=== PATIENT | female | born 1985 | race Hispanic/Latino ===

== ENCOUNTER 2016-08-17 09:17 | Inpatient (IN) | payer OTHER ==
[~2016-08-17] VITALS: Ht 144.8 cm; Wt 65.8 kg
[2016-08-17] MEDS ORDERED: PRENATA3 PO (09:33)
[2016-08-21] VITALS (16 sets, daily range): BP systolic 95–138; BP diastolic 49–83
--- NOTE | 2016-08-21 00:10 | NUR ---
COMES TO UNIT FOR REPEAT IN AM WITH BTL. ACCOMPANIED BY SIGNIFICANT OTHER AND TWO CHILDREN. PT SPEAKS SWAZI BUT PARTNER SPEAKS [place]. MONITOR APPLIED. MONITOR SHOWS CONTRACTIONS BUT PT STATES SHE DOES NOT FEEL THEM. IV STARTED BY DL RUIZ RN IN RT FOREARM.
[2016-08-21 01:16] LABS: HEMATOCRIT 34.3 % (37.0-47.0); HEMOGLOBIN 11.9 g/dl (12.0-16.0); IMMATURE GRANULOCYTES 0.3 % (0.0-1.0); MEAN CELL VOLUME 89.6 fL CALC (80.0-100.0); MEAN CORPUSCULAR HGB 31.1 pG CALC (26.0-32.0); MEAN CORPUSCULAR HGB CONC 34.7 g/L CALC (32.0-36.0); NEUT# 4.38 thou/uL (2.00-7.15); RED BLOOD COUNT 3.83 mill/uL (4.20-5.60); RED CELL DISTRI WIDTH 14.2 % (11.5-15.5)
--- NOTE | 2016-08-21 01:55 | NUR ---
PT READY FOR SLEEP. IV INFUSING PER MED PUMP AT 125CC/HR. IV SITE WNL. HAS NO QUESTIONS OR COMPLAINTS. PARTNER AND CHILDREN LEAVE. CALL LIGHT WITHIN REACH AND BED IN LOW POSITION.
--- NOTE | 2016-08-21 02:35 | NUR ---
PT ASSISTED TO RESTROOM TO VOID. NO COMPLAINTS. IV INFUSING WITHOUT PROBLEMS.
--- NOTE | 2016-08-21 05:54 | NUR ---
ASSISTED TO RESTROOM TO VOID. GAIT STEADY AND EVEN. VS TAKEN AND STABLE. IV INFUSING AT 125CC/HR PER MED PUMP. MONITOR PLACED ON PT. PT READY FOR SURGERY.
--- NOTE | 2016-08-21 06:36 | NUR ---
PT READY FOR SURGERY. REPORT ON PT STATUS READY FOR ONCOMING SHIFT.
--- NOTE | 2016-08-21 06:50 | NUR ---
DR LÓPEZ IN TO SEE PT, PLAN FOR C SECTION, BILATERAL TUBAL LIGATION CONFIRMED WITH PT.
--- NOTE | 2016-08-21 06:51 | NUR ---
FH 149, LLQ.
--- NOTE | 2016-08-21 06:52 | NUR ---
PT TO OR FOR C SECTION VIA STRETCHER WITH OR NURSE.
--- NOTE | 2016-08-21 10:15 | NUR ---
PT TO UNIT VIA STRETCHER, AWAKE, ALERT, MOVING LEGS, FEET. SETTLED IN BED. KENZIE CARE DONE, MAGAÑA DRAINS PALE YELLOW URINE, IV INFUSES W/O PROBLEM.
--- NOTE | 2016-08-21 10:30 | NUR ---
SCDS IN PLACE, PT ENC TO DEEP BREATHE. AWARE SHE CAN HAVE PAIN MED IF NEEDED. RATES PAIN AT "2". CALL NEIL W/IN REACH.
--- NOTE | 2016-08-21 11:19 | NUR ---
RESTS QUIETLY HOLDING .
--- NOTE | 2016-08-21 12:40 | NUR ---
1230 PT VOMITED 100 ML CLEAR LIQUID, GIVEN ZOFRAN. PT ENC TO WAIT TO DRINK ANY FLUIDS. LG AMT BLOOD ON GREEN PAD, NO ACTIVE BLEEDING, KENZIE CARE DONE. 1240 PT SAT UP TO CARE FOR GOT NAUSEOUS. VOMITE 10 ML, CLEAR, ENC TO LIE DOWN AND REST, S/O IN ROOM HELPING TO CARE FOR .
--- NOTE | 2016-08-21 12:55 | NUR ---
RETS WITH EYES CLOSED, S/O AT SIDE.
--- NOTE | 2016-08-21 13:30 | NUR ---
FUNDUS FIRM, LOCHIA LIGHT PT RESTS.
--- NOTE | 2016-08-21 15:00 | NUR ---
PT HAS BEEN HOLDING , DENIES NAUSEA, SIPPING WATER.
--- NOTE | 2016-08-21 17:00 | NUR ---
RESTING WITH EYES CLOSED, ALLOWED TO REST.
--- NOTE | 2016-08-21 18:00 | NUR ---
PT HAS BEEN USING INCENTIVE SPIROMETER. KENZIE CARE DONE, DRESSING UNCHANG SINCE 1230 TODAY. PT ENC TO GET OOB, PT SITS ON SIDE OF BED, WITHOUT PROBLEM, AMBULATED TO BATHROOM, FELT SLIGHTLY DIZZY, BACK TO BED, SITTING ON SIDE OF BED, EATING SMALL AMT FULL LIQUIDS. MAGAÑA DRAINS COLIN URINE.
--- NOTE | 2016-08-21 18:40 | NUR ---
PT HAS BEEN SITTING ON SIDE OF BED FOR 40 MIN, NOT DIZZY, LIES DOWN IN BED.
--- NOTE | 2016-08-21 18:50 | NUR ---
REPORT RECEIVED FROM PARESH COKER RN. PT SITTING IN BED HOLDING BABY. PT HAS IV OF LR WITH PITOCIN INFUSING AT 125CC/HR PER MED PUMP. MAGAÑA CATHETER PATENT AND DRAINING COLIN COLORED URINE. INCISIONAL DRESSING HAS OLD DRAINAGE NOTED IN LOWER RT QUADRANT, MARKED BY DAY SHIFT. NO NEW DRAINAGE NOTED. SHEELA CHAVES INTERPRETS FOR THIS NURSE.
--- NOTE | 2016-08-21 18:50 | NUR ---
REPORT TO ONCOMING SHIFT.
--- NOTE | 2016-08-21 19:20 | NUR ---
PT REQUESTS PAIN MEDICATION. MEDICATED WITH TORADOL. SEE E-MAR FOR DETAILS.
--- NOTE | 2016-08-21 20:10 | NUR ---
PT RESTING WITH EYES CLOSED. RESP EVEN AND UNLABORED. NO DISTRESS NOTED. BED IN LOW POSITION AND CALL LIGHT WITHIN REACH.
--- NOTE | 2016-08-21 23:35 | NUR ---
VS STABLE. PT HAS NO QUESTIONS OR CONCERNS. ENCOURAGED TO TAKE SOME ORAL FLUIDS BUT REFUSES. NO NEW DRAINAGE NOTED ON ABDOMINAL DRESSING. PT VERY TIRED. WILL LET HER SLEEP.
--- NOTE | 2016-08-22 01:45 | NUR ---
REPORT RECEIVED FROM Michael TESFAYE RN. PT SITTING QUIETLY UP IN BED, AWAKE WITH LIGHT ON. PT DENIES PAIN. ADVISED TAKING OVER CARE. ASKED IF I COULD GET HER UP TO BATHROOM, STATED NO. ADVISED WOULD NEED TO GET UP TO BATHROOM IN NEXT 1 TO 2 HOURS. IV FLUIDS RUNNING AT 125/HR. BED IN LOW POSITION. CALL LIGHT IN REACH. WILL CONTINUE TO MONITOR.
--- NOTE | 2016-08-22 05:00 | NUR ---
PT SITTING IN BEDSIDE CHAIR IN NO APPARENT DISTRESS. CBC DRAWN FROM LEFT AC USING #23 BUTTERFLY NEEDLE X1 ATTEMPT. PT TOLERATED WELL. DENIES NEEDS.
[2016-08-22 05:15] VITALS: BP 98/53
[2016-08-22 05:28] LABS: HEMATOCRIT 24.2 % (37.0-47.0); HEMOGLOBIN 8.1 g/dl (12.0-16.0); IMMATURE GRANULOCYTES 1.4 % (0.0-1.0); MEAN CELL VOLUME 91.7 fL CALC (80.0-100.0); MEAN CORPUSCULAR HGB 30.7 pG CALC (26.0-32.0); MEAN CORPUSCULAR HGB CONC 33.5 g/L CALC (32.0-36.0); NEUT# 4.65 thou/uL (2.00-7.15); RED BLOOD COUNT 2.64 mill/uL (4.20-5.60); RED CELL DISTRI WIDTH 14.3 % (11.5-15.5)
--- NOTE | 2016-08-22 06:09 | NUR ---
0594 PT ASSISTED UP TO BATHROOM. KENZIE CARE DONE, FRESH PADS APPLIED. DID NOT URINATE. ASSISTED TO BED AND HANDED PER REQUEST TO HOLD. 7490 TORODOL GIVEN REQUESTED FOR C/O PAIN.
--- NOTE | 2016-08-22 06:35 | NUR ---
PT SITTING UP IN BED HOLDING/FEEDING INFANT. REPORT PREPARED FOR NEXT SHIFT.
[2016-08-22 07:30] VITALS: BP 110/71
--- NOTE | 2016-08-22 07:40 | NUR ---
ASSESSMENT IS COMPLETED: IV SITE IS FREE FROM REDNESS OR EDEMA.DRESSING HAS SOME SHADOWING NOTED. BONDING WELL WITH . ABLE TO AMBULATE TO THE BATHROOM. VOIDED WELL. CONTINUE TO PASS FLATUS. CONTINUE TO OSBERVE AND MONITOR.
--- NOTE | 2016-08-22 12:15 | NUR ---
PT IS RELAXING IN BED WITH NEXT TO HER NO DISTRESS NOTED. IV SITE IS NOW HEPLOCKED WITH ROUTINE CARE. CONTINUE TO ENCOURAGE PT TO DRINK AND EAT.
[2016-08-22 16:00] VITALS: BP 110/71
--- NOTE | 2016-08-22 16:10 | NUR ---
PT IS RESTING AT THIS TIME. PT DID AMBULATE IN THE [place] WITH IN OPEN CRIB. NO DISTRESS NOTED. CONTINUE TO OSBERVE AND MONITOR
--- NOTE | 2016-08-22 19:00 | NUR ---
REPORT RECEIVED FROM PREVIOUS SHIFT. PT SITTING UP IN BED HOLDING INFANT. DRESSING DRY AND INTACT. STATES PAIN 1-2/10. S/O AND CHILDREN AT BEDSIDE. DENIES OTHER NEEDS AT THIS TIME. BED IN LOW POSITION, CALL LIGHT IN REACH.
[2016-08-22 20:22] VITALS: BP 109/61
--- NOTE | 2016-08-22 20:22 | NUR ---
IN TO SEE PATIENT. VS/ASSESSMENT CHARTED. STATES PAIN IS 1/10 AT INCISION LINE. ENCOURAGED PATIENT TO INCREASE FLUIDS. BROUGHT WATER AND APPLE JUICE PER REQUEST. DRESSING IS CLEAN, DRY AND INTACT WITH SOME SHADOWING. PT HAS NOT SHOWERED TODAY. ADVISED AFTER SHE FINISHES FEEDING INFANT, SHE CAN SHOWER AND WET DRESSING TO TAKE OFF. PT ASKED IF NEW DRESSING WOULD BE APPLIED AND EXPLAINED THAT IT WOULD BE OPEN TO AIR. REITTERATED TO PATIENT ABOUT HANDWASHING, SAFE INFANT SLEEPING, DIAPERING, USING BULB SUCTION AND WHERE TO KEEP DIAPERS AFTER CHANGING. VOICED UNDERSTANDING.
--- NOTE | 2016-08-23 02:11 | NUR ---
IN TO CHECK ON PATIENT. LAYING IN BED, EYES CLOSED. RESP EVEN/UNLABORED. GENTLY WOKE TO ADVISE/REITTERATE NEEDS TO BE IN OPEN CRIB WHEN PT SLEEPING. MOVED INFANT TO OPEN CRIB. ADVISED MOM WOULD TAKE TO NURSERY TO REPEAT HEARING, FEED , PKU.
[2016-08-23 06:04] VITALS: BP 107/64
--- NOTE | 2016-08-23 06:14 | NUR ---
IN ROOM WITH PT, STATES SHE HAD TO USE BATHROOM. ADVISED SHE MAY GET UP. PT NEEDS ENCOURAGEMENT TO GET UP ON OWN, FEED , CHANGE INFANT ON HER OWN.
--- NOTE | 2016-08-23 06:50 | NUR ---
REPORT GIVEN TO NEXT SHIFT. PT JUST UP TO BATHROOM, NOW BACK TO BED.
[2016-08-23 07:50] VITALS: BP 97/61
--- NOTE | 2016-08-23 07:50 | NUR ---
PT HAS BEEN RESTING IN BED WITH NO DISTRESS NOTED/ ASSESSMENT IS COMPLETED: IN TO VISIT WITH PT.
--- NOTE | 2016-08-23 10:39 | NUR ---
PT RELAXING ON THE SIDE OF THE BED, DR. ANDERSON IN TO VISIT WITH PT FOR DISCHARGE
--- NOTE | 2016-08-23 12:15 | NUR ---
pt has been in the room. getting lunch and finishing up paperwork for discharge. continue to osberve and monitor.
--- NOTE | 2016-08-23 12:35 | NUR ---
Pain level of 4 on scale of 1 to 10. Motrin 600mg by mouth given.
--- NOTE | 2016-08-23 13:41 | NUR ---
all discharge instructions interpreted by flakita arriola. pt verbalized understanding.
== END 2016-08-23 13:40 | disposition home or self-care (01) | DRG 766 ==
LOC: OB 08-21 00:10 → EDUNIT# 08-21 12:00 → OB 08-21 12:00
PROVIDERS: ADMIT Obstetrics & Gynecology; ATTEND Obstetrics & Gynecology
PROC: 10D00Z1 Extraction of Products of Conception, Low, Open Approach (ICD-10-PCS; principal; 2016-08-21)
PROC: 0UB70ZZ Excision of Bilateral Fallopian Tubes, Open Approach (ICD-10-PCS; 2016-08-21)
PROC: 0UN90ZZ Release Uterus, Open Approach (ICD-10-PCS; 2016-08-21)
PROC: 0DNW0ZZ Release Peritoneum, Open Approach (ICD-10-PCS; 2016-08-21)
DX: O34.211 Maternal care for low transverse scar from previous cesarean delivery (principal); N73.6 Female pelvic peritoneal adhesions (postinfective); N85.8 Other specified noninflammatory disorders of uterus; O99.89 Other specified diseases and conditions complicating pregnancy, childbirth and the puerperium; Z3A.39 39 weeks gestation of pregnancy; Z37.0 Single live birth

== ENCOUNTER 2016-12-11 13:53 | Emergency (ER) | payer SELFPAY ==
[~2016-12-11] VITALS: Ht 144.8 cm; Wt 56.0 kg
[~2016-12-11 13:53] MED LIST: PRENATA3 PO
[2016-12-11 15:11] LABS: URINE BILIRUBIN - DIPSTICK NEGATIVE (NEGATIVE); URINE BLOOD DIPSTICK TRACE-LYSED (NEGATIVE); URINE COLOR YELLOW; URINE GLUCOSE - DIPSTICK NEGATIVE (NEGATIVE); URINE KETONE NEGATIVE (NEGATIVE); URINE NITRITE - DIPSTICK NEGATIVE (Negative); URINE PROTEIN - DIPSTICK NEGATIVE (NEG-TRACE); URINE SPECIFIC GRAVITY 1.015; URINE UROBILINOGEN - DIPSTICK 0.2 E.U./dL (0.2)
[2016-12-11 15:14] LABS: URINE CLARITY HAZY; URINE LEUK ESTERASE SMALL (NEGATIVE)
[2016-12-11] MEDS ORDERED: BACTRIM DS1 TAB PO (15:17)
[2016-12-11] MEDS ORDERED: PYRIDIUM200 MG PO (15:17)
[2016-12-11 15:29] LABS: URINE RBC 0-2 RBC/hpf (0-5); URINE SQUAMOUS EPITHELIAL CELL FEW EPI/hpf (0-FEW)
[2016-12-11 15:31] VITALS: BP 117/66
== END 2016-12-11 15:36 | disposition home or self-care (01) | DRG 690 ==
LOC: ED 13:53
PROVIDERS: Emergency Medicine
DX: N39.0 Urinary tract infection, site not specified (principal); B96.20 Unspecified Escherichia coli [E. coli] as the cause of diseases classified elsewhere; R10.31 Right lower quadrant pain